=== PATIENT | male | born 1960 | race Caucasian/White ===

== ENCOUNTER → 2022-04-06 | Emergency (ER) | payer BC, OTHER ==
[~2022-04-06] VITALS: Ht 177.8 cm; Wt 108.9 kg
[2022-04-06 16:31] VITALS: BP 171/101
== END | disposition left against medical advice (07) ==
LOC: EDSEX 12:54 → ER 12:54
DX: R06.02 Shortness of breath (principal); Z53.21 Procedure and treatment not carried out due to patient leaving prior to being seen by health care provider
CPT/HCPCS: 93005

== ENCOUNTER → 2022-04-12 | Emergency (ER) | payer BC ==
[~2022-04-12] VITALS: Ht 170.2 cm; Wt 81.6 kg
[~2022-04-12] MED LIST: IOHEXOL 300 MG/ML 100ML BOTTLE IJ ONE
[2022-04-12 03:20] VITALS: BP 102/60
[2022-04-12 04:56] LABS: Albumin 3.8 g/dL (3.4-5.0); Basophils # (auto) 0.1 10 ^3/uL (0-0.2); Basophils % (auto) 0.7 % (0.0-2.0); Calcium 8.6 mg/dL (8.5-10.1); Eosinophils # (auto) 0.2 10 ^3/uL (0-0.8); Eosinophils % (auto) 2.6 % (0.0-7.0); Hematocrit 34.9 % (41.0-53.0); Hemoglobin 11.8 g/dL (13.5-17.5); Lymphocytes # (auto) 1.8 10 ^3/uL (0.4-5.4); Lymphocytes % (auto) 22.4 % (10.0-50.0); Mean Corpuscular Hemoglobin 27.2 pg (28.0-32.0); Mean Corpuscular Hgb Conc. 33.6 g/dL (32.0-36.0); Monocytes # (auto) 0.6 10 ^3/uL (0-1.3); Monocytes % (auto) 7.3 % (0.0-12.0); Neutrophils # (auto) 5.3 10 ^3/uL (1.6-8.6); Potassium 4.4 mmol/L (3.5-5.1); Red Blood Cells 4.32 10^6/uL (4.5-5.90); White Blood Cell 7.9 10^3/uL (4.4-10.8)
[2022-04-12 04:59] LABS: BUN/Creatinine Ratio 11.1; Bilirubin, Total 0.7 mg/dL (0.2-1.0); Total Protein 7.9 g/dL (6.4-8.2)
[2022-04-12 08:13] LABS: Urine Bacteria MANY /hpf (None Seen); Urine Blood 2+ /uL (Negative); Urine Hyaline Cast FEW /lpf (0 - 2); Urine Mucus FEW (None Seen); Urine Specific Gravity 1.016 (1.001-1.035); Urine WBC 1035 /hpf (0 - 3); Urine WBC Clumps PRESENT /hpf (None Seen)
== END | disposition left against medical advice (07) ==
LOC: EDUNIT# 03:17 → ER 03:19 → EDBD 03:19
DX: R10.9 Unspecified abdominal pain (principal); Z53.21 Procedure and treatment not carried out due to patient leaving prior to being seen by health care provider
CPT/HCPCS: 36415; 74176; 80053; 81001; 85025; 93005; Q9967

== ENCOUNTER → 2024-11-13 | Outpatient (CLI) | payer MEDICAID | END | disposition home or self-care (01) | LOC: Rad HDHVI 08:03 | PROVIDERS: ATTEND Internal Medicine Cardiovascular Disease | DX: I10 Essential (primary) hypertension (principal); R42 Dizziness and giddiness | CPT/HCPCS: 93306 ==

== ENCOUNTER → 2024-12-22 | Outpatient (CLI) | payer MEDICAID ==
[~2024-12-22] VITALS: Ht 177.8 cm; Wt 117.9 kg
[~2024-12-22] MED LIST changes: +EVOL140I SC; +GLIP5TAB21 PO; -IOHEXOL 300 MG/ML 100ML BOTTLE IJ ONE; +NIFE1TAB31 PO; +NITR0.4S29 SL; +SITA100T7 PO; +TAMS-35 PO
[2024-12-22 13:07] LABS: Basophils # (auto) 0 10 ^3/uL (0-0.2); Basophils % (auto) 0.7 % (0.0-2.0); Eosinophils # (auto) 0.1 10 ^3/uL (0-0.8); Hematocrit 43.1 % (41.0-53.0); Hemoglobin 14.4 g/dL (13.5-17.5); Lymphocytes # (auto) 1.2 10 ^3/uL (0.4-5.4); Lymphocytes % (auto) 23.2 % (10.0-50.0); Mean Corpuscular Hemoglobin 29.8 pg (28.0-32.0); Mean Corpuscular Hgb Conc. 33.5 g/dL (32.0-36.0); Monocytes # (auto) 0.4 10 ^3/uL (0-1.3); Monocytes % (auto) 7.5 % (0.0-12.0); Neutrophils # (auto) 3.3 10 ^3/uL (1.6-8.6); Neutrophils % (auto) 66.6 % (37.0-80.0); Nucleated Red Blood Cells % 0.2 %; Platelet Count (auto) 120 10^3/uL (140-450); Red Blood Cells 4.84 10^6/uL (4.5-5.90); Red Cell Distribution Width 15.8 % (11.8-14.3)
[2024-12-22 13:25] LABS: INR 0.98 (0.9-1.15); Partial Thromboplastin Time 28.3 SEC (24.5-34.5); Prothrombin Time 10.4 sec (9.3-11.8)
[2024-12-22 14:20] LABS: Chloride 106 mmol/L (98-107); Potassium 4.7 mmol/L (3.5-5.1); Sodium 138 mmol/L (136-145)
[2024-12-22 14:21] LABS: Anion Gap 7 (5-15); Calcium 10.1 mg/dL (8.7-10.4); Carbon Dioxide 25 mmol/L (20-31)
[2024-12-22 14:26] LABS: BUN/Creatinine Ratio 12.7 (10.0-20.0); Blood Urea Nitrogen 21 mg/dL (9-23)
[2024-12-22 14:27] LABS: Glucose 135 mg/dL (74-106)
== END | disposition home or self-care (01) ==
LOC: LAB 12:52 → EDSTATUS 12-25 08:46
PROVIDERS: ATTEND Internal Medicine Cardiovascular Disease
DX: Z01.810 Encounter for preprocedural cardiovascular examination (principal); I36.1 Nonrheumatic tricuspid (valve) insufficiency; R79.1 Abnormal coagulation profile
CPT/HCPCS: 36415; 80048; 85025; 85610; 85730

== ENCOUNTER → 2024-12-22 | Outpatient (CLI) | payer MEDICAID ==
[2024-12-22 10:18] VITALS: BP 167/72; PULSE 81; RESP 16; O2SAT 96
[2024-12-22 10:30] VITALS: BP 175/76; PULSE 78; RESP 16; O2SAT 96
--- NOTE | 2024-12-22 14:32 | DVH ---
EXAM: XY CHEST TWO VIEWS ROUTINE CLINICAL HISTORY: pain COMPARISON: None TECHNIQUE: Frontal and lateral view of the chest was obtained FINDINGS: Lines and Tubes: None Lungs: No focal consolidation. Linear scarring in the left lung base. Pleura: No effusion. No pneumothorax. Cardiomediastinal contours: Unremarkable Bones: No acute osseous abnormality. IMPRESSION: No acute cardiopulmonary disease.
== END | disposition home or self-care (01) ==
LOC: Rad HDHVI 10:09
PROVIDERS: ATTEND Internal Medicine Cardiovascular Disease
DX: Z01.818 Encounter for other preprocedural examination (principal)
CPT/HCPCS: 71046; 93005; G0463

== ENCOUNTER 2025-05-28 13:12 | Inpatient (IN) | payer MEDICAID ==
[~2025-05-28] VITALS: Ht 177.8 cm; Wt 117.3 kg
[2025-05-28] MEDS: ACETAMINOPHEN 325 MG TAB PO ONE (13:43)
--- NOTE | 2025-05-28 13:49 | ED.PDOC ---
History of Present Illness HPI Comments HPI: 66y M who presents to the ED via EMS for chief complaint of generalized weakness - pt states he has been having chills, weakness, malaise, nine months dry cough, and one episode of left upper chest wall focal pain last night. He is currently chest pain-free. - pt states he took 2x nitro but states it did not help last night - pt states he continued to have symptoms generalized weakness today and came to the ED for further evaluation - pt states in the ED, he has also been having decreased appetite and has been feeling more tired than usual which he states is not normal. - pt denies any associated sick contacts - pt is alert and oriented x 4 and able to answer all questions - Pt noted to have temp of 100.4, but otherwise has stable vitals including: rr 18, heart rate 94, BP 134/83, and 02 sat of 95% on room air Past Medical history: HTN, DM, CKD stage 3, HLD, Prostate CA Past Surgical history: CABG, TURP, cholecystectomy Medications: glipizide, nifedipine, nitroglycerin, Flomax Social History: Denies smoking, ETOH, and drug use. Allergies: NKDA HPI: Poor Historian. REVIEW OF SYSTEMS: CONSTITUTIONAL: Denies acute: diaphoresis, HEAD: Denies acute: headache, photophobia Eyes: Denies acute: Double vision, vision loss, eye pain, eye discharge. EARS: Denies acute: tinnitus, hearing loss, ear discharge, ear pain, THROAT: Denies acute: sore throat, swelling, difficulty swallowing , pain with swallo wing, change in voice. NECK: Denies acute: neck pain, neck swelling, stiff neck. HEART: Denies acute : chest pain, palpitations, LUNGS: Denies acute: SOB, wheezing, cough chronic, hemoptysis ABDOMEN: Denies acute: abdominal pain, Nausea, Vomiting, diarrhea, melena , hematemesis, hematochezia SKIN: Denies acute: rash, redness, lesions, itchiness. EXTREMITIES: Denies acute: calf pain, numbness, tingling, weakness, denies pain in extremity. Denies acute: Low back pain. Neuro: Denies acute: focal neurological deficit, motor or sensory focal neurological deficit, tremors, seizure like activity, confusion, dizziness, change in mental status, loss of bowel or bladder function, cauda equina like symptoms. : Denies acute: dysuria, hematuria, flank pain, increase in urinary frequency. PSYCH: Denies acute: hallucination, suicidal ideation, homicidal ideation. PHYSICAL EXAM: General: ----no----acute distress, awake and alert. Head: normocephalic, atraumatic. Neck: supple, trachea is midline, no swelling. Throat: Normal phonation. Eyes:, no erythema, no purulent discharge, no proptosis, no icterus. Heart: regular rate, regular rhythm, no significant murmur appreciated. Lungs: no apparent respiratory distress, Able to speak in full sentences. No wheezing, no rhonchi, no crackles. No stridors Clear to auscultation bilaterally. Abdomen: non tender to palpation, non distended, soft, no guarding, no rebound, + bowel sounds. Neuro: Awake, Alert, oriented to name, self, situation, follows commands GCS=15. Speech is normal. Skin: no petechia, no purpura, no cyanosis, non-pale, not jaundice. Lower extremities: --no - Pitting edema no deformity, no focal swelling, no calf TTP. Makes eye contact. moves all four extremities. Ambulating in the ED independently. ED COURSE: DISCLAIMER: This medical document was created using an electronic medical record system with voice recognition software and computerized dictation system. Although this document has been carefully reviewed, there might still be some phonetic and typographical errors. Occasional wrong-word or "sound-alike" substitutions may have occurred due to the inherent limitations of voice recognition software. These areas are purely typographical due to imperfections of the software programs and do not reflect any compromise in the patient's medical care. Please read the chart carefully and recognize, using context, where these substitutions have occurred. Chief Complaint: General Weakness Time Seen by MD: 13:19 Primary Care Provider: LEELEE Reviewed Notes: Medications, Allergies Allergies: Coded Allergies: No Known Drug Allergy (Verified Allergy, Unknown, 11/17/24) Home Meds Active Scripts Cephalexin (KEFLEX CAPSULE) 250 Mg Cp, 2 CAP PO BID for 3 Days, #12 CAP Prov:MCGOVERN,JETT T DO 05/30/25 Reported Medications Tamsulosin Hcl (Flomax) 0.4 Mg Cap, 1 CAP PO DAILY for BPH, #30 CAP 11 Refills 12/24/24 Nitroglycerin (NTROSTAT SUBLINGUAL) 0.4 Mg Sl, 0.4 MG SL PRN for CHEST PAIN, TAB *MAY REPEAT EVERY 5 MINUTES X 3 TOTAL IF NO RELIEF, INITIATE ANALGESIC THERAPY. NOTIFY PHYSICIAN *Do not crush. 12/24/24 Evolocumab (Repatha) 140 Mg/Ml Inj, 140 MG SC 2XMTHLY for HIGH CHOLESTEROL, INJ 12/24/24 Glipizide (Glipizide) 5 Mg Tab, 1 TAB PO BID for DIABETES, #60 TAB 3 Refills 12/24/24 Sitagliptin Phosphate (Januvia) 100 Mg Tab, 1 TAB PO DAILY for DIABETES, #30 TAB 5 Refills 12/24/24 Nifedipine (Nifedipine Er) 30 Mg Tab, 1 TAB PO BID for HTN, #90 TAB 1 Refill 12/24/24 Information Source: Patient Was a procedure done? Was a procedure done?: No Differential Dx Considerations may include: sepsis, viral syndrome, COVID, Influenza A and B, X-Ray, Labs, Meds, VS Vital Signs Date Time Temp Pulse Resp B/P (MAP) Pulse Ox O2 Delivery O2 Flow Rate FiO2 05/28/25 20:51 100.0 86 18 152/76 (101) 95 100.0 05/28/25 18:41 100.2 90 18 161/72 (101) 97 100.2 05/28/25 15:01 88 16 98 Room Air 05/28/25 15:01 100.1 88 16 136/79 (98) 98 100.1 05/28/25 13:52 90 05/28/25 13:43 100.4 05/28/25 13:36 100.4 94 18 134/83 (100) 95 100.4 Lab Test 05/28/25 16:55 05/28/25 14:57 05/28/25 14:45 05/28/25 13:50 Range/Units Troponin I High Sensitivity 7 8 6 </=54 ng/L Influenza Type A Antigen Negative Negative Influenza Type B Antigen Negative Negative SARS-CoV-2 Antigen (Rapid) Negative NEGATIVE Urine Color Light-yellow Yellow Urine Clarity Clear Clear Urine pH 5.5 5.0-9.0 Urine Specific [place] 1.012 1.001-1.035 Urine Protein Negative Negative Urine Ketones Negative Negative Urine Blood Negative Negative /uL Urine Nitrite Negative Negative Urine Bilirubin Negative Negative Urine Urobilinogen Normal Negative mg/dL Urine Leukocyte Esterase Negative Negative /uL Urine RBC <1 0 - 3 /hpf Urine Microscopic WBC 1 0-3 /HPF Urine Squamous Epithelial Cells Few <5 /hpf Urine Bacteria None seen None Seen /hpf Urine Glucose Normal Normal mg/dL White Blood Count 5.0 4.4-10.8 10^3/uL Red Blood Count 4.79 4.5-5.90 10^6/uL Hemoglobin 14.2 13.5-17.5 g/dL Hematocrit 41.7 41.0-53.0 % Mean Corpuscular Volume 87.1 80.0-100.0 fL Mean Corpuscular Hemoglobin 29.7 28.0-32.0 pg Mean Corpuscular Hemoglobin Concent 34.1 32.0-36.0 g/dL Red Cell Distribution Width 15.3 H 11.8-14.3 % Platelet Count 117 L 140-450 10^3/uL Mean Platelet Volume 8.7 6.9-10.8 fL Neutrophils (%) (Auto) 82.3 H 37.0-80.0 % Lymphocytes (%) (Auto) 10.2 10.0-50.0 % Monocytes (%) (Auto) 6.6 0.0-12.0 % Eosinophils (%) (Auto) 0.1 0.0-7.0 % Basophils (%) (Auto) 0.8 0.0-2.0 % Neutrophils # (Auto) 4.1 1.6-8.6 10 ^3/uL Lymphocytes # (Auto) 0.5 0.4-5.4 10 ^3/uL Monocytes # (Auto) 0.3 0-1.3 10 ^3/uL Eosinophils # (Auto) 0 0-0.8 10 ^3/uL Basophils # (Auto) 0 0-0.2 10 ^3/uL Nucleated Red Blood Cells 0.2 % Erythrocyte Sedimentation Rate 12 0-20 mm/hr Sodium Level 135 L 136-145 mmol/L Potassium Level 4.2 3.5-5.1 mmol/L Chloride Level 105 98-107 mmol/L Carbon Dioxide Level 20 20-31 mmol/L Anion Gap 10 5-15 Blood Urea Nitrogen 16 9-23 mg/dL Creatinine 1.76 H 0.700-1.30 mg/dL Glomerular Filtration Rate Calc 43 >90 mL/min BUN/Creatinine Ratio 9.1 L 10.0-20.0 Serum Glucose 116 H 74-106 mg/dL Lactic Acid Level 0.7 0.4-2.0 mmol/L Calcium Level 9.4 8.7-10.4 mg/dL Total Bilirubin 0.9 0.2-1.0 mg/dL Aspartate Amino Transferase (AST) 25 13-40 U/L Alanine Aminotransferase (ALT) 17 7-40 U/L Alkaline Phosphatase 65 46-116 U/L C-Reactive Protein High Sensitivity 3.77 H <1.0 mg/dL Total Protein 7.0 5.7-8.2 g/dL Albumin 4.6 3.2-4.8 g/dL Test 05/28/25 13:45 Range/Units POC Glucose 125 H 70-106 mg/dl Microbiology Date/Time Source Procedure Growth Status 05/28/25 14:00 Blood Blood Culture - Final NO GROWTH AFTER 5 DAYS OF INCUBATION. [facility] 05/28/25 13:50 Blood Blood Culture - Final NO GROWTH AFTER 5 DAYS OF INCUBATION. [place] [address] Ph: [phone] DIAGNOSTIC IMAGING Diagnostic Imaging Report : [id number] Signed PATIENT: JOSUÉ EVANS ACCT: [id number] UNIT: [id number] : 1960 LOC: ER ROOM / BED: / AGE / SEX: 64 / M ADM STATUS: REG ER SERVICE 1348 ORDERING PHYSICIAN: KASSANDRA WILLSON DO PROCEDURE(s): CXRP - CHEST PORTABLE REASON: fever, gen weakness ORDER NUMBER(s): [id number], ACCESSION NUMBER(s): [id number] EXAM: XY CHEST PORTABLE Indication: fever, gen weakness Technique: Single frontal view of the chest was obtained Comparison: None FINDINGS: Lines and Tubes: None Lungs: No focal consolidation. Linear scarring in the left lower lung Pleura: No effusion. No pneumothorax. Cardiomediastinal contours: Unremarkable Bones: No acute osseous abnormality. IMPRESSION: No acute cardiopulmonary disease. ATED BY: JAYESH ABBOTT MD DICTATED DATE/TIME: 05/28/251431 SIGNED BY: JAYESH ABBOTT MD SIGNED DATE/TIME: 05/28/251431 CC: Time of 1ST Reevaluation: 00:00 Reevaluation 1ST: N/A Patient Education/Counseling: Diagnosis, Treatment Family Education/Counseling: No Family Present Comments MDM: patient presented with the above HPI.--generalized weakness----workup was initiated. patient was found with the above mentioned diagnosis. the following medications were ordered: please refer to order lists of meds and tests obtained by myself Dr. Willson. Patient ED course and VS have been stabilized. Patient has been reassessed in the ED and remained in a stable condition. Pertinent incidental findings were discussed with the patient and/or family. Patient/family voices understanding and is agreeable with plan. Patient has been observed in the ED adequate length of time to insure im provement/stability. Escalation of care considered: Consideration of escalation to observation or admission Patient was found with a fever of unknown etiology. Patient had elevated CRP and slightly elevated creatinine. Patient was ADMITTED to the medicine team for further evaluation and treatment of their presentation. All the reports of any imaging studies that were ordered by myself were reviewed by myself. SEPSIS Sepsis Screen Physician Orders Wildlife Manager (05/28/25 ) Chest Portable (05/28/25 13:48) Electrocardigram (05/28/25 13:48) Code Status (05/28/25 21:13) Oxygen Per Hour (05/28/25 21:13) Vital Signs Date Time Temp Pulse Resp B/P (MAP) Pulse Ox O2 Delivery O2 Flow Rate FiO2 05/28/25 20:51 100.0 86 18 152/76 (101) 95 100.0 05/28/25 18:41 100.2 90 18 161/72 (101) 97 100.2 05/28/25 15:01 88 16 98 Room Air 05/28/25 15:01 100.1 88 16 136/79 (98) 98 100.1 05/28/25 13:52 90 05/28/25 13:43 100.4 05/28/25 13:36 100.4 94 18 134/83 (100) 95 100.4 Laboratory Tests Test 05/28/25 13:50 Lactic Acid Level 0.7 mmol/L (0.4-2.0) White Blood Count 5.0 10^3/uL (4.4-10.8) Departure 1 Departure Time of Disposition: 17:06 Impression: Primary Impression: Fever of unknown origin Additional Impressions: Generalized weakness Thrombocytopenia Disposition: ADMITTED INPATIENT Admit to: Tele Condition: Guarded e-Prescriptions Cephalexin (KEFLEX CAPSULE) 250 Mg Cp 2 CAP PO BID for 3 Days, #12 CAP Prov: JETT MCGOVERN DO 05/30/25 Discharged With: Self Critical Care Note Critical Care Time?: No Heart Score Heart Score: Heart Score Response (Comments) Value History N/A 0 EKG N/A 0 Age N/A 0 Risk Factors N/A 0 Troponin N/A 0 Total 0 I personally scribed for KASSANDRA WILLSON DO ([facility] on 05/28/25 at 13:48. Electronically submitted by Mook Yi ([facility]). I personally scribed for KASSANDRA WILLSON DO ([facility]) on 05/28/25 at 14:24. Electronically submitted by Mook Yi ([employer]). I personally scribed for KASSANDRA WILLSON DO ([facility]) on 05/28/25 at 21:01. Electronically submitted by Mook Yi ([employer]). KASSANDRA WILLSON DO May 28, 2025 13:48
--- NOTE | 2025-05-28 13:53 | ECG ---
[facility] Test Date: 2025-05-28 Test Time: 13:52:17 Pat Name: JOSUÉ EVANS Department: ED Room: 0214T Gender: M Core Sticker: johanne : 1960 Requested By: KASSANDRA WILLSON Order Number: [id number] Reading MD: Pa Chilel Measurements Intervals [place] Rate: 90 P: 21 NV: 137 QRS: -19 QRSD: 108 T: -20 QT: 353 QTc: 432 Interpretive Statements Sinus rhythm Borderline left axis deviation RSR' in V1 or V2, probably normal variant Borderline T abnormalities, inferior leads Borderline ST elevation, anterior leads Baseline wander in lead(s) V2 Electronically Signed On 06-03-2025 15:40:15 PDT by Pa Chilel Please click the below link to view image of tracing.
[2025-05-28] MEDS: SODIUM CHLORIDE 0.9% 1,000 ML IV ONE (14:00)
[2025-05-28 14:18] LABS: Hematocrit 41.7 % (41.0-53.0); Hemoglobin 14.2 g/dL (13.5-17.5); Mean Corpuscular Hemoglobin 29.7 pg (28.0-32.0); Mean Corpuscular Volume 87.1 fL (80.0-100.0); Nucleated Red Blood Cells % 0.2 %
--- NOTE | 2025-05-28 14:35 | DVH ---
EXAM: XY CHEST PORTABLE Indication: fever, gen weakness Technique: Single frontal view of the chest was obtained Comparison: None FINDINGS: Lines and Tubes: None Lungs: No focal consolidation. Linear scarring in the left lower lung Pleura: No effusion. No pneumothorax. Cardiomediastinal contours: Unremarkable Bones: No acute osseous abnormality. IMPRESSION: No acute cardiopulmonary disease.
[2025-05-28 14:41] LABS: Alanine Aminotransferase 17 U/L (7-40); Alkaline Phosphatase 65 U/L (46-116); Anion Gap 10 (5-15); BUN/Creatinine Ratio 9.1 (10.0-20.0); Blood Urea Nitrogen 16 mg/dL (9-23); Calcium 9.4 mg/dL (8.7-10.4); Chloride 105 mmol/L (98-107); Potassium 4.2 mmol/L (3.5-5.1); Total Protein 7.0 g/dL (5.7-8.2)
[2025-05-28 14:42] LABS: Albumin 4.6 g/dL (3.2-4.8); Bilirubin, Total 0.9 mg/dL (0.2-1.0); Carbon Dioxide 20 mmol/L (20-31); Glucose 116 mg/dL (74-106); Sodium 135 mmol/L (136-145)
[2025-05-28 15:43] LABS: Urine Protein, UAD Negative (Negative)
[2025-05-28 15:53] LABS: COVID19 ANTIGEN SOFIA FIA NEGATIVE (NEGATIVE)
[2025-05-28] MEDS ORDERED: HYDROcodone-ACET 5/325MG TAB PO PRN (21:15)
[2025-05-28] MEDS ORDERED: ACETAMINOPHEN 325 MG TAB PO PRN (21:15)
[2025-05-28] MEDS ORDERED: DEXTROSE (50%) 50ML SYRG IV PRN (21:15)
[2025-05-28] MEDS ORDERED: ONDANSETRON HCL 4 MG/2 ML VIAL IV PRN (21:15)
[2025-05-28] MEDS: SODIUM CHLORIDE 0.9% 1,000 ML IV SCH (21:15)
[2025-05-28] MEDS ORDERED: DOCUSATE SOD 100 MG CAP PO PRN (21:15)
--- NOTE | 2025-05-28 22:27 | DVHHP2 ---
History of Present Illness Reason for Visit: Generalized weakness History of Present Illness The patient is a 66-year-old male with past medical history of chronic kidney disease, diabetes mellitus, hyperlipidemia, hypertension, and prostate cancer who presented to [facility] ED with complaint of generalized weaknes s. Patient reports he has been experiencing weakness associated with chills, malaise, dry mouth, left upper chest wall pain, poor appetite, getting worse that prompted this visit. Patient was seen and evaluated in the ED, laboratory data shows WBC 5.0, platelets 117, sodium 135, potassium 4.2, BUN 16, creatinine 1.76, glucose 116, calcium 9.4, troponin 8, C-reactive protein 3.77, blood pressure 152/76, heart rate 86, temperature 100.4 F trending down to 99.0 F, O2 saturation 97% on room air. Chest x-ray show no acute cardiopulmonary disease. Please see medication orders section in the computer. On my assessment, patient denied chest pain, no headache, no dizziness, no shortness of breath, no diarrhea, no nausea, no vomiting, no fever, no chills. Patient was admitted for further evaluation and medical management. Past Medical History HTN, DM, CKD stage 3, HLD, Prostate CA Past Surgical History CABG, TURP, Cholecystectomy Family History Reviewed, noncontributory to the management of this case. Past Social History The patient lives at home, denies smoking, alcohol or illicit drugs abuse. Review of Systems Constitutional: Yes: Fever, Chills, Weakness; No: Sweats, Malaise, Other Eyes: No: Pain, Vision change, Conjunctivae inflammation, Eyelid inflammation, Other, Redness ENT: No: Ear pain, Ear discharge, Nose pain, Nose discharge, Nose congestion, Mouth pain, Mouth swelling, Throat pain, Throat swelling, Other Respiratory: No: Cough, Dry, Shortness of breath, SOB with excertion, Wheezing, Hemoptysis, Pleuritic Pain, Sputum, Wheezing, Other Cardiovascular: No: Chest Pain, Palpitations, Orthopnea, Paroxysmal Noc. Dyspnea, Edema, Lt Headedness, Other Gastrointestinal: Other (Poor appetite); No: Nausea, Vomiting, Abdominal Pain, Diarrhea, Constipation, Melena, Hematochezia Genitourinary: No Dysuria, No Frequency, No Incontinence, No Hematuria, No Retention, No Other Musculoskeletal: No: other, neck pain, shoulder pain, arm pain, back pain, hand pain, leg pain, foot pain Skin: No: Rash, Lesions, Jaundice, Bruising, Other Neurological: No: Weakness, Numbness, Incoordination, Change in speech, Confusion, Seizures, Other Allergies: Coded Allergies: No Known Drug Allergy (Verified Allergy, Unknown, 11/17/24) Medications Current Medications Medications Dose Ordered Sig/Yelena Route Start Time Stop Time Status Last Admin Dose Admin Tamsulosin HCl 0.4 mg QPM PO 05/29/25 18:00 Ceftriaxone Sodium 50 ml @ 100 mls/hr DAILY@09 IV 05/29/25 09:00 Diagnostic Test (Pha) 1 strip ACHS 05/28/25 22:00 Insulin Human Regular ACHS SC 05/28/25 22:00 Dextrose 50 ml UD PRN IV 05/28/25 21:15 Sodium Chloride 1,000 ml @ 60 mls/hr [id number] IV 05/28/25 21:15 Acetaminophen/ Hydrocodone Bitart 1 tab Q4HP PRN PO 05/28/25 21:15 Ondansetron HCl 4 mg Q4HP PRN IV 05/28/25 21:15 Docusate Sodium 100 mg BIDPRN PRN PO 05/28/25 21:15 Acetaminophen 650 mg Q6HP PRN PO 05/28/25 21:15 Exam Vital Signs Vital Signs Date Time Temp Pulse Resp B/P (MAP) Pulse Ox O2 Delivery O2 Flow Rate FiO2 05/28/25 20:51 100.0 86 18 152/76 (101) 95 100.0 05/28/25 15:01 Room Air General Appearance: Alert, Oriented X3, Cooperative, No acute distress HEENT: Atraumatic, PERRLA, EOMI, Mucous membr. moist/pink Respiratory: Clear to auscultation, Normal air movement Cardiovascular: Regular rate, Normal S1, Normal S2, No murmurs Abdominal: Normal bowel sounds, Soft, No tenderness, No hepatospenomegaly, No masses Extremities: No clubbing, No cyanosis, No edema, Normal pulses, No tenderness/swelling Skin: No rashes, No breakdown, No significant lesion Neuro: Normal speech, Normal tone, Sensation intact, Cranial nerves 3-12 NL, Reflexes 2+, Other (Generalized weakness) Psych/Mental Status: Mental status NL, Mood NL Labs/Xrays Labs Test 05/28/25 16:55 05/28/25 14:57 05/28/25 14:45 05/28/25 13:50 Range/Units Troponin I High Sensitivity 7 </=54 ng/L Influenza Type A Antigen Negative Negative Influenza Type B Antigen Negative Negative SARS-CoV-2 Antigen (Rapid) Negative NEGATIVE Urine Color Light-yellow Yellow Urine Clarity Clear Clear Urine pH 5.5 5.0-9.0 Urine Specific [place] 1.012 1.001-1.035 Urine Protein Negative Negative Urine Ketones Negative Negative Urine Blood Negative Negative /uL Urine Nitrite Negative Negative Urine Bilirubin Negative Negative Urine Urobilinogen Normal Negative mg/dL Urine Leukocyte Esterase Negative Negative /uL Urine RBC <1 0 - 3 /hpf Urine Microscopic WBC 1 0-3 /HPF Urine Squamous Epithelial Cells Few <5 /hpf Urine Bacteria None seen None Seen /hpf Urine Glucose Normal Normal mg/dL White Blood Count 5.0 4.4-10.8 10^3/uL Red Blood Count 4.79 4.5-5.90 10^6/uL Hemoglobin 14.2 13.5-17.5 g/dL Hematocrit 41.7 41.0-53.0 % Mean Corpuscular Volume 87.1 80.0-100.0 fL Mean Corpuscular Hemoglobin 29.7 28.0-32.0 pg Mean Corpuscular Hemoglobin Concent 34.1 32.0-36.0 g/dL Red Cell Distribution Width 15.3 H 11.8-14.3 % Platelet Count 117 L 140-450 10^3/uL Mean Platelet Volume 8.7 6.9-10.8 fL Neutrophils (%) (Auto) 82.3 H 37.0-80.0 % Lymphocytes (%) (Auto) 10.2 10.0-50.0 % Monocytes (%) (Auto) 6.6 0.0-12.0 % Eosinophils (%) (Auto) 0.1 0.0-7.0 % Basophils (%) (Auto) 0.8 0.0-2.0 % Neutrophils # (Auto) 4.1 1.6-8.6 10 ^3/uL Lymphocytes # (Auto) 0.5 0.4-5.4 10 ^3/uL Monocytes # (Auto) 0.3 0-1.3 10 ^3/uL Eosinophils # (Auto) 0 0-0.8 10 ^3/uL Basophils # (Auto) 0 0-0.2 10 ^3/uL Nucleated Red Blood Cells 0.2 % Erythrocyte Sedimentation Rate 12 0-20 mm/hr Sodium Level 135 L 136-145 mmol/L Potassium Level 4.2 3.5-5.1 mmol/L Chloride Level 105 98-107 mmol/L Carbon Dioxide Level 20 20-31 mmol/L Anion Gap 10 5-15 Blood Urea Nitrogen 16 9-23 mg/dL Creatinine 1.76 H 0.700-1.30 mg/dL Glomerular Filtration Rate Calc 43 >90 mL/min BUN/Creatinine Ratio 9.1 L 10.0-20.0 Serum Glucose 116 H 74-106 mg/dL Lactic Acid Level 0.7 0.4-2.0 mmol/L Calcium Level 9.4 8.7-10.4 mg/dL Total Bilirubin 0.9 0.2-1.0 mg/dL Aspartate Amino Transferase (AST) 25 13-40 U/L Alanine Aminotransferase (ALT) 17 7-40 U/L Alkaline Phosphatase 65 46-116 U/L C-Reactive Protein High Sensitivity 3.77 H <1.0 mg/dL Total Protein 7.0 5.7-8.2 g/dL Albumin 4.6 3.2-4.8 g/dL Test 05/28/25 13:45 Range/Units POC Glucose 125 H 70-106 mg/dl PATIENT: JOSUÉ EVANS ACCT: [id number] UNIT: [id number] : 1960 LOC: ER ROOM / BED: / AGE / SEX: 64 / M ADM STATUS: REG ER SERVICE 1348 ORDERING PHYSICIAN: KASSANDRA WILLSON DO PROCEDURE(s): CXRP - CHEST PORTABLE REASON: fever, gen weakness ORDER NUMBER(s): [id number], ACCESSION NUMBER(s): [id number] EXAM: XY CHEST PORTABLE Indication: fever, gen weakness Technique: Single frontal view of the chest was obtained Comparison: None FINDINGS: Lines and Tubes: None Lungs: No focal consolidation. Linear scarring in the left lower lung Pleura: No effusion. No pneumothorax. Cardiomediastinal contours: Unremarkable Bones: No acute osseous abnormality. IMPRESSION: No acute cardiopulmonary disease. SEPSIS Sepsis Screen Date sepsis recognized/suspect: May 28, 2025 Time Sepsis recognized/suspect: 1328 Recent Procedure: No On Antibiotic Therapy: No Respiratory Rate >20: No Heart Rate >90: Yes Temp<36 C (96.8 F) or >38.3 C: No SBP <90 or MAP <65 mmHG: No New Acute Mental Status Change: No Is the patient on CPAP, BIPAP,: No Physician Orders Tamsulosin Hydrochloride (Flomax) (05/29/25 18:00) Consistent Carb(Ccho)Diabetes (05/29/25 Breakfast) Ceftriaxone 1gm/50ml D5w (Rocephin) (05/29/25 09:00) Glucose Blood (Accu-Chek Comfort Curve T (05/28/25 22:00) Insulin R (Human) (Insulin R) (05/28/25 22:00) Dextrose 50% Syringe (05/28/25 21:15) Allergies (05/28/25 21:13) Code Status (05/28/25 21:13) Sodium Chloride 0.9% (05/28/25 21:15) Oxygen Per Hour (05/28/25 21:13) Hydrocodone-Acet 5/325mg Tab ([place] 5/32 (05/28/25 21:15) Ondansetron Hcl (Zofran) (05/28/25 21:15) Docusate Sodium Capsule (Colace Capsule) (05/28/25 21:15) Complete Blood Count (05/29/25 04:00) Comprehensive Metabolic Panel (05/29/25 04:00) Condition: Serious (05/28/25 21:13) Acetaminophen Tablet (Tylenol Tablet) (05/28/25 21:15) Bedrest With Bathroom Privileg (05/28/25 21:13) Sequential Compression Device (05/28/25 ) Vital Signs Date Time Temp Pulse Resp B/P (MAP) Pulse Ox O2 Delivery O2 Flow Rate FiO2 05/28/25 20:51 100.0 86 18 152/76 (101) 95 100.0 05/28/25 18:41 100.2 90 18 161/72 (101) 97 100.2 05/28/25 15:01 88 16 98 Room Air 05/28/25 15:01 100.1 88 16 136/79 (98) 98 100.1 Laboratory Tests Test 05/28/25 13:50 Lactic Acid Level 0.7 mmol/L (0.4-2.0) White Blood Count 5.0 10^3/uL (4.4-10.8) Medications Medications Dose Ordered Sig/Yelena Route Start Time Stop Time Status Last Admin Dose Admin Acetaminophen 650 mg ONCE ONCE PO 05/28/25 13:45 05/28/25 13:46 DC 05/28/25 13:43 650 MG Sodium Chloride 1,000 ml @ 1,000 mls/hr Q1H ONCE IV 05/28/25 14:00 05/28/25 14:59 DC 05/28/25 14:00 1,000 MLS/HR Assessment/Plan Assessment/Plan Fever of unknown origin Acute renal injury Thrombocytopenia Generalized weakness Plan 1. Admit to telemetry unit 2. Breathing treatment 3. Pain control management 4. IV antibiotic management 5. Management of fluids and electrolytes 6. Consultation for hospitalist 7. Diagnostic test chest x-ray 8. DVT prophylaxis on SCDs 9. Repeat labs CBC, CMP in a.m. 10. Home medication reviewed and reconciled 11. Continue with current medical management 12. Treatment plan discussed with patient and RN. Patient verbalized understanding. Plan discussed with: Patient, Other (RN) My Orders Orders - NASIM ELLER DNP Procedure Category Date Status Time Tamsulosin PHA 05/29/25 In Process Hydrochloride (Flomax) 18:00 Consistent DIET 05/29/25 Transmitted Carb(Ccho)Diabetes Breakfast Ceftriaxone 1gm/50ml PHA 05/29/25 In Process D5w (Rocephin) 09:00 Glucose Blood PHA 05/28/25 In Process (Accu-Chek Comfort 22:00 Insulin R (Human) PHA 05/28/25 In Process (Insulin R) 22:00 Dextrose 50% Syringe PHA 05/28/25 In Process 21:15 Allergies JENNIFFER 05/28/25 In Process 21:13 Code Status CODE 05/28/25 Transmitted 21:13 Sodium Chloride 0.9% PHA 05/28/25 In Process 21:15 Oxygen Per Hour RT 05/28/25 Transmitted 21:13 Hydrocodone-Acet PHA 05/28/25 In Process 5/325mg Tab ([place] 21:15 Ondansetron Hcl PHA 05/28/25 In Process (Zofran) 21:15 Docusate Sodium PHA 05/28/25 In Process Capsule (Colace 21:15 Complete Blood Count LAB 05/29/25 Verified 04:00 Comprehensive LAB 05/29/25 Verified Metabolic Panel 04:00 Condition: Serious JENNIFFER 05/28/25 In Process 21:13 Acetaminophen Tablet [facility] 05/28/25 In Process (Tylenol Tablet) 21:15 Bedrest With Bathroom [facility] 05/28/25 In Process Privileg 21:13 Sequential [facility] 05/28/25 In Process Compression Device Problem List: (1) Fever of unknown origin (2) Acute renal injury (3) Thrombocytopenia (4) Generalized weakness Date of Service: May 28, 2025 Billing Provider: NASIM ELLER DNP Common Visit Codes: [id number] INP/OBS CARE (HIGH) NASIM ELLER DNP May 28, 2025 22:27
[2025-05-28] MEDS ORDERED: MORPHINE SULFATE INJ 2 MG/ml SYRG IV PRN (22:30)
[2025-05-28] MEDS ORDERED: NITROGLYCERIN 0.4 MG SL TAB SL PRN (22:30)
[2025-05-28 22:40] VITALS: PULSE 78; RESP 20; O2SAT 97
[2025-05-28] MEDS: cefTRIAXone 1GM/50ML D5W 50 ML IV ONE (22:49)
[2025-05-28] MEDS: ACCU-CHEK COMFORT CURVE STRIP VI SCH (22:57)
[2025-05-28] MEDS: InsuLIN REG 1unit/0.01ml Soln (100units/ml) SC SCH (23:09)
[2025-05-29] VITALS (7 sets, daily range): BP systolic 133–148; BP diastolic 62–87; PULSE 76–94; RESP 16–24; TEMP 97.2–98.3; O2SAT 94–98
[2025-05-29 05:59] LABS: Hematocrit 38.7 % (41.0-53.0); Hemoglobin 13.2 g/dL (13.5-17.5); Mean Corpuscular Hemoglobin 29.6 pg (28.0-32.0); Mean Corpuscular Volume 86.8 fL (80.0-100.0); Nucleated Red Blood Cells % 0.2 %
[2025-05-29 06:08] LABS: Alanine Aminotransferase 12 U/L (7-40); Albumin 4.3 g/dL (3.2-4.8); Alkaline Phosphatase 59 U/L (46-116); Anion Gap 10 (5-15); BUN/Creatinine Ratio 9.1 (10.0-20.0); Blood Urea Nitrogen 15 mg/dL (9-23); Carbon Dioxide 21 mmol/L (20-31); Potassium 3.8 mmol/L (3.5-5.1); Sodium 139 mmol/L (136-145); Total Protein 6.8 g/dL (5.7-8.2)
[2025-05-29 06:09] LABS: Bilirubin, Total 0.6 mg/dL (0.2-1.0); Calcium 8.7 mg/dL (8.7-10.4); Chloride 108 mmol/L (98-107); Glucose 108 mg/dL (74-106)
[2025-05-29] MEDS: cefTRIAXone 1GM/50ML D5W 50 ML IV SCH (09:00)
[2025-05-29] MEDS: TAMSULOSIN HYDROCHLORIDE 0.4 MG CAP PO SCH (18:25)
[2025-05-30 01:00] VITALS: BP 131/78; PULSE 74; RESP 12; TEMP 97.8; O2SAT 97
[2025-05-30 05:00] VITALS: BP 140/81; PULSE 100; RESP 16; TEMP 99.1; O2SAT 97
[2025-05-30 08:00] VITALS: PULSE 71; RESP 17; O2SAT 95
[2025-05-30 08:42] VITALS: BP 131/78; PULSE 71; RESP 17; TEMP 97.3; O2SAT 95
[2025-05-30 13:00] VITALS: BP 163/91; PULSE 67; RESP 17; TEMP 98; O2SAT 99
--- NOTE | 2025-05-30 13:31 | DVHPN2 ---
Reviewed: Care Plan, H&P, Labs, Medications, Previous Orders, Radiology Changes from previous H/P or p: No Changes General: Per HPI Eyes: No Pain, No Vision change, No Conjunctivae inflammation, No Eyelid inflammation, No Other, No Redness ENT: No Ear pain, No Ear discharge, No Nose pain, No Nose discharge, No Nose congestion, No Mouth pain, No Mouth swelling, No Throat pain, No Throat swelling, No Other Cardiovascular: No Chest Pain, No Palpitations, No Orthopnea, No Paroxysmal Noc. Dyspnea, No Edema, No Lt Headedness, No Other Respiratory: No Cough, No Dry, No Shortness of breath, No SOB with excertion, No Wheezing, No Hemoptysis, No Pleuritic Pain, No Sputum, No Other Gastrointestinal: No Nausea, No Vomiting, No Abdominal Pain, No Diarrhea, No Constipation, No Melena, No Hematochezia; Other (Poor appetite) Genitourinary: No Dysuria, No Frequency, No Incontinence, No Hematuria, No Retention, No Other Musculoskeletal: No other, No neck pain, No shoulder pain, No arm pain, No back pain, No hand pain, No leg pain, No foot pain Skin: No Rash, No Lesions, No Jaundice, No Bruising, No Other Objective Vitals Vital Signs Date Time Temp Pulse Resp B/P (MAP) Pulse Ox O2 Delivery O2 Flow Rate FiO2 05/30/25 08:42 97.3 71 17 131/78 (95) 95 97.3 05/30/25 08:00 Room Air* 0 21 Intake/Output Intake and Output 05/30/25 07:00 Intake Total 2400 ml Balance 2400 ml Intake Oral 2400 ml # Voids 6 # Bowel Movements 1 General Appearance: Alert, Oriented X3 Lungs: Clear to auscultation Abdomen: Normal bowel sounds, Soft Medications Current Medications Medications Dose Ordered Sig/Yelena Route Start Time Stop Time Status Last Admin Dose Admin Tamsulosin HCl 0.4 mg QPM PO 05/29/25 18:00 05/29/25 18:25 0.4 MG Ceftriaxone Sodium 50 ml @ 100 mls/hr DAILY@09 IV 05/29/25 09:00 Diagnostic Test (Pha) 1 strip ACHS 05/28/25 22:00 05/30/25 06:19 1 STRIP Insulin Human Regular ACHS SC 05/28/25 22:00 05/30/25 06:19 2 UNITS Dextrose 50 ml UD PRN IV 05/28/25 21:15 Sodium Chloride 1,000 ml @ 60 mls/hr [id number] IV 05/28/25 21:15 05/29/25 14:22 60 MLS/HR Acetaminophen/ Hydrocodone Bitart 1 tab Q4HP PRN PO 05/28/25 21:15 Ondansetron HCl 4 mg Q4HP PRN IV 05/28/25 21:15 Docusate Sodium 100 mg BIDPRN PRN PO 05/28/25 21:15 Acetaminophen 650 mg Q6HP PRN PO 05/28/25 21:15 Nitroglycerin 0.4 mg Q5MINP PRN SL 05/28/25 22:30 Morphine Sulfate 2 mg Q30M PRN IV 05/28/25 22:30 Laboratory Results Laboratory Tests 05/29/25 05:03 Urinalysis Test 05/28/25 14:45 Urine Color Light-yellow (Yellow) Urine Clarity Clear (Clear) Urine pH 5.5 (5.0-9.0) Urine Specific [place] 1.012 (1.001-1.035) Urine Protein Negative (Negative) Urine Ketones Negative (Negative) Urine Blood Negative /uL (Negative) Urine Nitrite Negative (Negative) Urine Bilirubin Negative (Negative) Urine Urobilinogen Normal mg/dL (Negative) Urine Leukocyte Esterase Negative /uL (Negative) Urine RBC <1 /hpf (0 - 3) Urine Microscopic WBC 1 /HPF (0-3) Urine Squamous Epithelial Cells Few /hpf (<5) Urine Bacteria None seen /hpf (None Seen) Urine Glucose Normal mg/dL (Normal) Microbiology Microbiology Date/Time Source Procedure Growth Status 05/28/25 14:00 Blood Blood Culture - Preliminary NO GROWTH AFTER 24 HOURS OF INCUBATION. Resulted Labs and/or images reviewed: Labs reviewed by me, Image(s) reviewed by me Assessment/Plan Assessment/Plan The patient is a 66-year-old male with past medical history of chronic kidney disease, diabetes mellitus, hyperlipidemia, hypertension, and prostate cancer who presented to [facility] ED with complaint of generalized weakness. Patient reports he has been experiencing weakness associated with chills, malaise, dry mouth, left upper chest wall pain, poor appetite, getting worse that prompted this visit. Patient was seen and evaluated in the ED, laboratory data shows WBC 5.0, platelets 117, sodium 135, potassium 4.2, BUN 16, creatinine 1.76, glucose 116, calcium 9.4, troponin 8, C-reactive protein 3.77, blood pressure 152/76, heart rate 86, temperature 100.4 F trending down to 99.0 F, O2 saturation 97% on room air. Chest x-ray show no acute cardiopulmonary disease. Please see medication orders section in the computer. On my assessment, patient denied chest pain, no headache, no dizziness, no shortness of breath, no diarrhea, no nausea, no vomiting, no fever, no chills. Patient was admitted for further evaluation and medical management. (1) Fever of unknown origin (2) Acute renal injury (3) Thrombocytopenia (4) Generalized weakness #sepsis criteria with suspected UTI 05/29/25 started on iv abx, empirically I was informed by nursing that pt refused abx stating that he has CKD and would like to see a power saw mechanic. i informed nursing that it's ok for pt to receive ceftriaxone as it's not dosed by renal fx. Pt still refused Plan discussed with: Patient Date of Service: May 29, 2025 Billing Provider: JETT MCGOVERN DO Common Visit Codes: [id number] INP/OBS CARE(HIGH) JETT MCGOVERN DO May 30, 2025 13:31
[2025-05-30] MEDS: cefTRIAXone 1GM/50ML D5W 50 ML IV ONE (15:57)
[2025-05-30 16:05] LABS: Urine Protein, UAD Negative (Negative)
[2025-05-30 17:00] VITALS: BP 149/90; PULSE 70; RESP 17; TEMP 97.9; O2SAT 96
[2025-05-30] MEDS ORDERED: CEPH250C PO (17:29)
--- NOTE | 2025-05-30 17:31 | DVHDS2 ---
Discharge Summary Date of Admission May 28, 2025 at 22:26 Date of Discharge: May 30, 2025 Labs/Diagnostic Data: Laboratory Results Test 05/30/25 17:05 05/30/25 15:38 05/29/25 11:54 05/29/25 05:03 POC Glucose 166 mg/dl (70-106) Urine Color Colorless (Yellow) Urine Clarity Clear (Clear) Urine pH 5.5 (5.0-9.0) Urine Specific [place] 1.005 (1.001-1.035) Urine Protein Negative (Negative) Urine Ketones Negative (Negative) Urine Blood Negative /uL (Negative) Urine Nitrite Negative (Negative) Urine Bilirubin Negative (Negative) Urine Urobilinogen Normal mg/dL (Negative) Urine Leukocyte Esterase Negative /uL (Negative) Urine RBC None seen /hpf (0 - 3) Urine Microscopic WBC < 1 /HPF (0-3) Urine Squamous Epithelial Cells None seen /hpf (<5) Urine Bacteria None seen /hpf (None Seen) Urine Glucose Normal mg/dL (Normal) Creatine Kinase 116 U/L (46-171) White Blood Count 4.2 10^3/uL (4.4-10.8) Red Blood Count 4.46 10^6/uL (4.5-5.90) Hemoglobin 13.2 g/dL (13.5-17.5) Hematocrit 38.7 % (41.0-53.0) Mean Corpuscular Volume 86.8 fL (80.0-100.0) Mean Corpuscular Hemoglobin 29.6 pg (28.0-32.0) Mean Corpuscular Hemoglobin Concent 34.1 g/dL (32.0-36.0) Red Cell Distribution Width 15.4 % (11.8-14.3) Platelet Count 100 10^3/uL (140-450) Mean Platelet Volume 8.5 fL (6.9-10.8) Neutrophils (%) (Auto) 73.1 % (37.0-80.0) Lymphocytes (%) (Auto) 15.7 % (10.0-50.0) Monocytes (%) (Auto) 9.6 % (0.0-12.0) Eosinophils (%) (Auto) 0.5 % (0.0-7.0) Basophils (%) (Auto) 1.1 % (0.0-2.0) Neutrophils # (Auto) 3.0 10 ^3/uL (1.6-8.6) Lymphocytes # (Auto) 0.7 10 ^3/uL (0.4-5.4) Monocytes # (Auto) 0.4 10 ^3/uL (0-1.3) Eosinophils # (Auto) 0 10 ^3/uL (0-0.8) Basophils # (Auto) 0 10 ^3/uL (0-0.2) Nucleated Red Blood Cells 0.2 % Sodium Level 139 mmol/L (136-145) Potassium Level 3.8 mmol/L (3.5-5.1) Chloride Level 108 mmol/L (98-107) Carbon Dioxide Level 21 mmol/L (20-31) Anion Gap 10 (5-15) Blood Urea Nitrogen 15 mg/dL (9-23) Creatinine 1.65 mg/dL (0.700-1.30) Glomerular Filtration Rate Calc 47 mL/min (>90) BUN/Creatinine Ratio 9.1 (10.0-20.0) Serum Glucose 108 mg/dL (74-106) Calcium Level 8.7 mg/dL (8.7-10.4) Total Bilirubin 0.6 mg/dL (0.2-1.0) Aspartate Amino Transferase (AST) 21 U/L (13-40) Alanine Aminotransferase (ALT) 12 U/L (7-40) Alkaline Phosphatase 59 U/L (46-116) Total Protein 6.8 g/dL (5.7-8.2) Albumin 4.3 g/dL (3.2-4.8) Test 05/28/25 16:55 05/28/25 14:57 05/28/25 13:50 Troponin I High Sensitivity 7 ng/L (</=54) Influenza Type A Antigen Negative (Negative) Influenza Type B Antigen Negative (Negative) SARS-CoV-2 Antigen (Rapid) Negative (NEGATIVE) Erythrocyte Sedimentation Rate 12 mm/hr (0-20) Lactic Acid Level 0.7 mmol/L (0.4-2.0) C-Reactive Protein High Sensitivity 3.77 mg/dL (<1.0) Other Laboratory Tests 05/29/25 05:03 Brief Hx & Hospital Course: The patient is a 66-year-old male with past medical history of chronic kidney disease, diabetes mellitus, hyperlipidemia, hypertension, and prostate cancer who presented to [facility] ED with complaint of generalized weakness. Patient reports he has been experiencing weakness associated with chills, malaise, dry mouth, left upper chest wall pain, poor appetite, getting worse that prompted this visit. Patient was seen and evaluated in the ED, laboratory data shows WBC 5.0, platelets 117, sodium 135, potassium 4.2, BUN 16, creatinine 1.76, glucose 116, calcium 9.4, troponin 8, C-reactive protein 3.77, blood pressure 152/76, heart rate 86, temperature 100.4 F trending down to 99.0 F, O2 saturation 97% on room air. Chest x-ray show no acute cardiopulmonary disease. Please see medication orders section in the computer. On my assessment, patient denied chest pain, no headache, no dizziness, no shortness of breath, no diarrhea, no nausea, no vomiting, no fever, no chills. Patient was admitted for further evaluation and medical management. (1) Fever of unknown origin (2) Acute renal injury (3) Thrombocytopenia (4) Generalized weakness #sepsis criteria with suspected UTI 05/29/25 started on iv abx, empirically I was informed by nursing that pt refused abx stating that he has CKD and would like to see a oxygen therapist. i informed nursing that it's ok for pt to receive ceftriaxone as it's not dosed by renal fx. Pt still refused 05/30/2025 pt states he does not want to stay any longer and demanded to be discharged i discussed with him about the risks of not receiving abx and working the source. Pt also mentioned that both of his parents from 'sepsis' but he states that he feels find, no longer has fever and would not stay He wanted to have me repeat UA and if it's negative, he would be like to be released with oral abx. Condition at Discharge: Stable Final Diagnosis/Problems List uti, generalized Weakness Discharge Disposition: Home Discharge Instruct/Medications Diet: Consistent carbohydrate Activity: No Restrictions, As Tolerated Medications: Oral antibiotics wiill be sent to pharmacy of choice Scheduled Cephalexin (Keflex Capsule), 2 CAP PO BID Evolocumab (Repatha), 140 MG SC 2XMTHLY, (Reported) Glipizide (Glipizide), 1 TAB PO BID, (Reported) Nifedipine (Nifedipine Er), 1 TAB PO BID, (Reported) Nitroglycerin (Ntrostat Sublingual), 0.4 MG SL PRN, (Reported) Sitagliptin Phosphate (Januvia), 1 TAB PO DAILY, (Reported) Tamsulosin Hcl (Flomax), 1 CAP PO DAILY, (Reported) Discharge Statement: "Patient was advised to return to the ER or call 911 if any headaches, dizziness, shortness of breath, chest pain, abdominal pain, bleeding, fevers, or worsening of medical condition. Patient was counseled about treatment plan, medications, possible side effects, patientverbalized understanding. All questions were answered to the best of my ability. This discharge took greater then 30 minutes in planning, reviewing documentation, counseling the patient, and discussing with other team members." ASSESSMENT ASSESSMENT Assessment uti, generalized Weakness Date of Service: May 30, 2025 Billing Provider: JETT MCGOVERN DO Common Visit Codes: [id number] DISCH DAY >30min JETT MCGOVERN DO May 30, 2025 17:31
== END 2025-05-30 18:00 | disposition home or self-care (01) | DRG 720 ==
LOC: ER 13:12 → OVERFLOW 22:26 → TELE-CENTR 05-29 15:47
PROVIDERS: ADMIT Internal Medicine; ATTEND Internal Medicine
DX: A41.9 Sepsis, unspecified organism (principal); D69.6 Thrombocytopenia, unspecified; N17.9 Acute kidney failure, unspecified; E11.22 Type 2 diabetes mellitus with diabetic chronic kidney disease; E78.5 Hyperlipidemia, unspecified; Z20.822 Contact with and (suspected) exposure to COVID-19; N18.30 Chronic kidney disease, stage 3 unspecified; I12.9 Hypertensive chronic kidney disease with stage 1 through stage 4 chronic kidney disease, or unspecified chronic kidney disease; N39.0 Urinary tract infection, site not specified; Z85.46 Personal history of malignant neoplasm of prostate; Z95.1 Presence of aortocoronary bypass graft; Z90.49 Acquired absence of other specified parts of digestive tract; Z79.4 Long term (current) use of insulin
CPT/HCPCS: 36415; 71045; 80053; 81001; 82550; 82962; 83605; 84484; 85025; 85652; 86141; 87040; 87426; 87804; 93005; 96361; 96365; G0378; J1815